=== PATIENT | female | born 1945 | race Caucasian/White ===

== ENCOUNTER 2016-09-20 06:44 | Emergency (ER) | payer MEDICARE ==
[~2016-09-20] VITALS: Ht 157.5 cm; Wt 68.0 kg
[~2016-09-20 06:44] MED LIST: COUM3TAB PO; CYCL-36 PO; DIAZ5 PO; DIGO.125 PO; LORT5TAB PO; PRAV80TA PO
[2016-09-20 06:54] VITALS: BP 187/91; PULSE 92; RESP 18; TEMP 97.7; O2SAT 95
[2016-09-20] MEDS ORDERED: DIAZ5TAB PO (07:02)
[2016-09-20] MEDS ORDERED: DIGO0.12 PO (07:02)
[2016-09-20] MEDS ORDERED: PRAV80TA2 PO (07:02)
[2016-09-20] MEDS ORDERED: ASPI325T PO (07:02)
[2016-09-20] MEDS ORDERED: FLUO20CA4 PO (07:02)
[2016-09-20] MEDS ORDERED: LIDOCAINE 2% JELLY 30 ML TUBE TOPICAL ONE (07:15)
--- NOTE | 2016-09-20 07:19 | PD ---
HPI Chief Complaint: Nosebleed Time Seen by Provider: 07:12 Travel History International Travel<30 days: No Contact w/Intl Traveler<30days: No Traveled to known affect area: No History of Present Illness HPI 70-year-old female presents with bleeding from her nose with going up into her eye on the right that started at 6 AM this morning. She denies prior history of this. She states she normally takes a full dose aspirin but forgot to take it yesterday and has not taken it yet today. Her family who is with her states that her blood pressure is more elevated than usual. Quality is bright red blood. Severity is increasing. Duration is one hour. PFSH Past Medical History Atrial Fibrillation: Yes (ATRIAL FLUTTER) Anxiety: Yes (ONLY WITH HAVING INCREASE HEART RATE) Heart Rhythm Problems: Yes Cardiovascular Problems: Yes High Cholesterol: Yes Hypertension: Yes Inguinal Hernia: Yes (LEFT SIDE) Influenza Vaccination: Yes ?: Not Menopausal: Yes Tubal Ligation: Yes Past Surgical History Section: Yes (X3) Tonsillectomy: Yes Social History Alcohol Use: No Tobacco Use: No Substance Use: No Allergies-Medications (Allergen,Severity, Reaction): Coded Allergies: No Known Allergies (Verified , 09/20/16) Reported Meds & Prescriptions Reported Meds & Active Scripts Active Reported Diazepam 5 Mg Tab 5 Mg PO HS PRN Fluoxetine (Fluoxetine HCl) 20 Mg Cap 20 Mg PO DAILY Digoxin 0.125 Mg Tab 0.125 Mg PO DAILY Pravastatin 80 Mg Tab 80 Mg PO DAILY Aspirin 325 Mg Tab 325 Mg PO DAILY Review of Systems Except as stated in HPI: all other systems reviewed are Neg Physical Exam Exam Limitations: Other: (active nosebleed) Narrative General: Blood noted from right nare and right nasolacrimal duct ENT: Posterior oropharyngx with blood noted Neck: trachea is midline Cardiovascular: Regular rate and rhythm Lungs: No increased respiratory effort noted, CTA bilaterally at apices Neuro: Awake, moves all extremities, normal speech Data Data Last Documented VS Vital Signs Date Time Temp Pulse Resp B/P Pulse Ox O2 Delivery O2 Flow Rate FiO2 09/20/16 09:01 89 17 141/69 97 09/20/16 08:16 Room Air 09/20/16 06:54 97.7 Orders Complete Blood Count With Diff (09/20/16 07:12) Basic Metabolic Panel (Bmp) (09/20/16 07:12) Act Partial Throm Time (Ptt) (09/20/16 07:12) Prothrombin Time / Inr (Pt) (09/20/16 07:12) Iv Access Insert/Monitor (09/20/16 07:12) Ecg Monitoring (09/20/16 07:12) Oximetry (09/20/16 07:12) Type And Screen (09/20/16 07:12) Lidocaine 2% Jelly (Xylocaine 2% Jelly) (09/20/16 07:15) Acetaminophen (Tylenol) (09/20/16 08:15) Labs Laboratory Tests Test 09/20/16 07:25 White Blood Count 7.5 TH/MM3 Red Blood Count 4.36 MIL/MM3 Hemoglobin 11.4 GM/DL Hematocrit 34.7 % Mean Corpuscular Volume 79.7 FL Mean Corpuscular Hemoglobin 26.1 PG Mean Corpuscular Hemoglobin 32.8 % Concent Red Cell Distribution Width 16.1 % Platelet Count 331 TH/MM3 Mean Platelet Volume 7.5 FL Neutrophils (%) (Auto) 74.7 % Lymphocytes (%) (Auto) 13.3 % Monocytes (%) (Auto) 7.4 % Eosinophils (%) (Auto) 1.4 % Basophils (%) (Auto) 3.2 % Neutrophils # (Auto) 5.6 TH/MM3 Lymphocytes # (Auto) 1.0 TH/MM3 Monocytes # (Auto) 0.6 TH/MM3 Eosinophils # (Auto) 0.1 TH/MM3 Basophils # (Auto) 0.2 TH/MM3 CBC Comment DIFF FINAL Differential Comment Prothrombin Time 11.5 SEC Prothromb Time International 1.0 RATIO Ratio Activated Partial 25.4 SEC Thromboplast Time Sodium Level 143 MEQ/L Potassium Level 4.5 MEQ/L Chloride Level 107 MEQ/L Carbon Dioxide Level 25.5 MEQ/L Anion Gap 11 MEQ/L Blood Urea Nitrogen 24 MG/DL Creatinine 1.00 MG/DL Estimat Glomerular Filtration 55 ML/MIN Rate Random Glucose 109 MG/DL Calcium Level 8.5 MG/DL [facility] Medical Decision Making Medical Screen Exam Complete: Yes Emergency Medical Condition: Yes Medical Record Reviewed: Yes (past history confirmed) Interpretation(s) CBC & BMP Diagram 09/20/16 07:25 Differential Diagnosis Anemia, hypercoagulable, epistaxis Narrative Course Will check blood work and place packing on the right after direct pressure for 5 minutes has not resolved bleeding No further bleeding, Patient denies any new complaints and states that they are feeling better. Patient happy with care, all questions answered. Patient knows that follow up is incumbent on them and to return to the emergency room immediately if new or worsening symptoms develop. Patient given strict return precautions, vitals reviewed and are normal, agrees to further workup as an outpatient. Procedures Procedure Narrative NASAL PACKING: The right nare was anesthetized topically with lidocaine. The nare was packed with Rapid rhino. Adequate control of bleeding was obtained. The patient was observed without recurrence of bleeding. Patient tolerated procedure well. Diagnosis Primary Impression: Epistaxis Patient Instructions: General Instructions Additional Instructions: tylenol as needed, follow with ent within 2 days, return as needed Med/Other Pt SpecificInfo: No Change to Meds Disposition: 01 DISCHARGE HOME Condition: Stable Le Dean MD Sep 20, 2016 07:19
[2016-09-20 07:33] VITALS: BP 187/79; PULSE 91; RESP 18; O2SAT 96
[2016-09-20 07:34] VITALS: O2SAT 95
[2016-09-20 07:35] LABS: AUTOMATED NEUTROPHIL # 5.6 TH/MM3 (1.8-7.7); BASOPHIL # 0.2 TH/MM3 (0-0.2); BASOPHIL % 3.2 % (0.0-2.0); EOSINOPHIL # 0.1 TH/MM3 (0-0.4); EOSINOPHIL % 1.4 % (0.0-4.0); HEMATOCRIT 34.7 % (35.0-46.0); HEMO FLAGS DIFF FINAL; LYMPH % 13.3 % (9.0-44.0); MEAN CELL VOLUME 79.7 FL (80.0-100.0); MEAN CORPUSCULAR HEMOGLOBIN 26.1 PG (27.0-34.0); MEAN CORPUSCULAR HGB CONC 32.8 % (32.0-36.0); MONO % 7.4 % (0.0-8.0); NEUT % 74.7 % (16.0-70.0); PLATELET COUNT 331 TH/MM3 (150-450); RED BLOOD COUNT 4.36 MIL/MM3 (4.00-5.30); RED CELL DISTRIBUTION WIDTH 16.1 % (11.6-17.2); WHITE BLOOD COUNT 7.5 TH/MM3 (4.0-11.0)
[2016-09-20 07:49] LABS: POTASSIUM 4.5 MEQ/L (3.5-5.1)
[2016-09-20 07:51] LABS: BICARBONATE 25.5 MEQ/L (21.0-32.0)
[2016-09-20 07:52] LABS: APTT (PATIENT) 25.4 SEC (24.3-30.1); PROTHROMBIN TIME - PATIENT 11.5 SEC (9.8-11.6)
[2016-09-20] MEDS ORDERED: ACETAMINOPHEN 325 MG TAB PO ONE (08:15)
[2016-09-20 08:16] VITALS: BP 179/94; PULSE 88; RESP 18; O2SAT 96
[2016-09-20 09:01] VITALS: BP 141/69
== END 2016-09-20 09:02 | disposition home or self-care (01) ==
LOC: PHED 06:44
DX: R04.0 Epistaxis (principal); I48.92 Unspecified atrial flutter; E78.00 Pure hypercholesterolemia, unspecified; I10 Essential (primary) hypertension; Z79.82 Long term (current) use of aspirin
CPT/HCPCS: 30901; 80048; 85025; 85610; 85730; 86850; 86900; 86901